=== PATIENT | male | born 1960 | race Caucasian/White ===

== ENCOUNTER 2018-01-24 10:00 | Day surgery (SDC) | payer MEDICAID ==
[2018-01-23 15:16] LABS: BASOPHILS # (AUTO) 0.1 X10'3 (0-0.2); BASOPHILS % (AUTO) 1.6 % (0-1); EOSINOPHILS # (AUTO) 0.3 X10'3 (0-0.9); EOSINOPHILS % (AUTO) 4.1 % (0-6); LYMPHOCYTES # (AUTO) 2.3 X10'3 (1.1-4.8); LYMPHOCYTES % (AUTO) 28.1 % (21-51); MEAN CORPUSCULAR HEMOGLOBIN 32.7 PG (27.0-31.0); MEAN CORPUSCULAR HGB CONC 34.6 % (33.0-36.5); MEAN CORPUSCULAR VOLUME 94.4 FL (78-98); MEAN PLATELET VOLUME 7.8 FL (7.4-10.4); MONOCYTES # (AUTO) 0.8 X10'3 (0-0.9); MONOCYTES % (AUTO) 9.4 % (2-12); NEUTROPHILS # (AUTO) 4.7 X10'3 (1.8-7.7); NEUTROPHILS % (AUTO) 56.8 % (42-75); PRE OP HEMOGLOBIN 15.3 g/dL (14.0-17.9); PRE OP PLATELET COUNT 332 X10'3 (140-440); RED BLOOD COUNT 4.66 X10'6 (4.70-6.10); RED CELL DISTRIBUTION WIDTH 13.4 % (11.5-14.5)
[2018-01-23 15:33] LABS: ALBUMIN 3.6 G/DL (3.4-5.0); ALBUMIN/GLOBULIN RATIO 0.8 (1.1-1.5); ALKALINE PHOSPHATASE 127 IU/L (46-116); BLOOD UREA NITROGEN 13 MG/DL (7-18); BUN/CREATININE RATIO 13.1 (5.4-32.0); CHLORIDE 103 MMOL/L (99-107); CREATININE 0.99 MG/DL (0.60-1.10); PRE OP ANION GAP 9 (8-16); PRE OP AST 67 U/L (10-37); PRE OP BILIRUB, TOTAL 0.3 MG/DL (0.0-1.0); PRE OP GLUCOSE 114 MG/DL (70-104); PRE OP POTASSIUM 4.1 MMOL/L (3.4-5.1); PRE OP SODIUM 140 MMOL/L (135-145); TOTAL CARBON DIOXIDE 28.3 MMOL/L (24-32); TOTAL PROTEIN 8.1 G/DL (6.4-8.2); eGFR 78 ML/MIN
[2018-01-23 15:41] LABS: PRE OP ALT 86 U/L (30-65)
[~2018-01-24] VITALS: Ht 162.6 cm; Wt 79.4 kg
[2018-01-24] VITALS (7 sets, daily range): BP systolic 110–130; BP diastolic 74–83
[~2018-01-24 10:00] MED LIST: AMLO10TA4 PO; BUPIVAcaine/PF 2.5 mg/ml (0.25%) 30ml vial ONE; HYDR25TA4 PO; LOSA25TA96 PO; MELO-102 PO; cefazolin/dext.iso 2gm/50ml 50 ML IV ONE; famotidine 20mg tablet PO ONE; ringers solution, lacted 1,000 ML IV SCH
[2018-01-24] MEDS ORDERED: LIDOcaine 1% (10mg/ml) 2ml vial ONE (11:18)
[2018-01-24] MEDS ORDERED: ringers solution, lacted 1,000 ML IV SCH (12:26)
[2018-01-24] MEDS ORDERED: proCHLORperazine 10 MG/2 ml inj IV PRN (12:30)
[2018-01-24] MEDS ORDERED: ondansetron/PF 4mg/2ml inj IV PRN (12:30)
[2018-01-24] MEDS ORDERED: morphine 2 MG/ML inj. syringe IV PRN ×2 (12:30)
[2018-01-24] MEDS ORDERED: meperidine/PF 50mg/ml syringe IV PRN ×3 (12:30)
[2018-01-24] MEDS ORDERED: LIDOcaine 0.5% (5mg/ml) 50ml vial ONE (12:42)
[2018-01-24] MEDS ORDERED: fentaNYL/PF 50MCG/1 ML 2ML syringe ONE (12:50)
[2018-01-24] MEDS ORDERED: midazolam 2 mg/2 ml injection ONE (12:50)
[2018-01-24] MEDS ORDERED: propofol inj 20 ML IV ONE ×2 (13:10)
[2018-01-24] MEDS ORDERED: HYDROmorphone 1 mg/ml syringe ONE (14:19)
[2018-01-24] MEDS ORDERED: acetaminophen 1,000mg/100ml IV 100 ML IV PRN (14:20)
[2018-01-24] MEDS ORDERED: ketorolac trometh. 30mg/ml inj. IV ONE (14:20)
[2018-01-24] MEDS ORDERED: HYDROmorphone inj. 0.5 MG/0.5 ML DISP.SYRIN IV ONE (14:20)
[2018-01-24] MEDS ORDERED: morphine 4 MG/ML inj SYRINge IV PRN ×2 (14:23→14:24)
== END 2018-01-24 15:00 | disposition home or self-care (01) ==
LOC: PAS 10:00
PROVIDERS: ATTEND Orthopaedic Surgery Hand Surgery
DX: M18.12 Unilateral primary osteoarthritis of first carpometacarpal joint, left hand (principal); M25.742 Osteophyte, left hand; F10.129 Alcohol abuse with intoxication, unspecified; F41.9 Anxiety disorder, unspecified; G89.4 Chronic pain syndrome; I10 Essential (primary) hypertension; E66.9 Obesity, unspecified; F17.210 Nicotine dependence, cigarettes, uncomplicated; J44.9 Chronic obstructive pulmonary disease, unspecified; F32.9 Major depressive disorder, single episode, unspecified; M19.90 Unspecified osteoarthritis, unspecified site; Z98.890 Other specified postprocedural states; Z91.011 Allergy to milk products; Z91.018 Allergy to other foods; Z68.30 Body mass index [BMI] 30.0-30.9, adult; Z79.899 Other long term (current) drug therapy
CPT/HCPCS: 25447; 36415; 80053; 85025; 93005; A6258; A6449; J0690; J1170; J2001; J2250; J2704; J3010; J3490; J7120; L8630; A7000

== ENCOUNTER 2023-08-07 11:05 | Day surgery (SDC) | payer MEDICAID ==
[~2023-08-07] VITALS: Ht 162.6 cm; Wt 89.4 kg
[~2023-08-07 11:05] MED LIST changes: -BUPIVAcaine/PF 2.5 mg/ml (0.25%) 30ml vial ONE; +LOSA-415 PO; -LOSA25TA96 PO; -cefazolin/dext.iso 2gm/50ml 50 ML IV ONE; -famotidine 20mg tablet PO ONE; -ringers solution, lacted 1,000 ML IV SCH
[2023-08-07 11:30] VITALS: BP 150/103; PULSE 103; RESP 20; TEMP 98.1; O2SAT 88
--- NOTE | 2023-08-07 11:30 | NUR ---
O2 Sat at rest on room air:__88_% If below 89%: Recovery O2 Sat at rest on __2_LPM:___%:__92_% via__nasal cannula (mask/nasal cannula, etc..) No further documentation is necessary. If O2 Sat did not drop below 89% on room air,ambulate patient on room air. O2 Sat while ambulating on room air:___% Recovery O2 Sat while ambulating on ___LPM:___% No further documentation is necessary. If patient does not drop below 89% while ambulating, he/she does not qualify for home O2.
[2023-08-07 11:31] VITALS: RESP 18; O2SAT 92
[2023-08-07] MEDS ORDERED: FLUO-1 PO (11:32)
[2023-08-07] MEDS ORDERED: GABA300T25 PO (11:32)
[2023-08-07] MEDS ORDERED: ALBU10.7 INH (11:32)
[2023-08-07] MEDS ORDERED: normal saline 1000ml 1,000 ML IV SCH (11:35)
[2023-08-07] MEDS ORDERED: fentaNYL/PF 50MCG/1 ML 2ML syringe ONE (14:36)
[2023-08-07] MEDS ORDERED: midazolam 1 mg/ML 2ml injection ONE (14:36)
[2023-08-07] MEDS ORDERED: heparin sodium, porcine/PF 100unit/ml 5ML syringe ONE (14:36)
[2023-08-07 15:30] VITALS: BP 134/82; PULSE 96; RESP 18; O2SAT 92
[2023-08-07 15:45] VITALS: BP 141/72; PULSE 90; RESP 19; O2SAT 92
[2023-08-07 16:00] VITALS: BP 135/83; PULSE 79; RESP 19; O2SAT 91
[2023-08-07 16:15] VITALS: BP 136/78; PULSE 74; RESP 18; O2SAT 92
== END 2023-08-07 16:30 | disposition home or self-care (01) ==
LOC: SSTAY O 11:05
PROVIDERS: ATTEND Radiology Vascular & Interventional Radiology
DX: C34.12 Malignant neoplasm of upper lobe, left bronchus or lung (principal); F17.210 Nicotine dependence, cigarettes, uncomplicated; Z91.011 Allergy to milk products; Z91.048 Other nonmedicinal substance allergy status; Z79.899 Other long term (current) drug therapy; Z72.89 Other problems related to lifestyle; F12.90 Cannabis use, unspecified, uncomplicated; F14.90 Cocaine use, unspecified, uncomplicated; F15.90 Other stimulant use, unspecified, uncomplicated
CPT/HCPCS: 36561; 76937; 77001; 99152; C1769; C1788; J1642; J2250; J3010; J7030; 99153; A4615; A4620; C1894

== ENCOUNTER 2023-08-13 08:50 | Emergency (ER) | payer MEDICAID ==
[~2023-08-13] VITALS: Ht 160 cm; Wt 86.4 kg
[~2023-08-13 08:50] MED LIST changes: +ALBU10.7 INH; -AMLO10TA4 PO; +FLUO-1 PO; +GABA300T25 PO; -MELO-102 PO
[2023-08-13 09:01] VITALS: TEMP 98
[2023-08-13 09:36] LABS: BASOPHILS # (AUTO) 0.1 X10'3 (0-0.2); BASOPHILS % (AUTO) 0.8 % (0-1); EOSINOPHILS % (AUTO) 0 % (0-6); HEMATOCRIT 41.7 % (42.0-52.0); HEMOGLOBIN 13.9 g/dl (14.0-17.9); LYMPHOCYTES # (AUTO) 0.8 X10'3 (1.1-4.8); LYMPHOCYTES % (AUTO) 4.6 % (21-51); MEAN CORPUSCULAR HEMOGLOBIN 31.5 PG (27.0-31.0); MEAN CORPUSCULAR HGB CONC 33.4 g/dL (33.0-36.5); MEAN CORPUSCULAR VOLUME 94.2 FL (78-98); MEAN PLATELET VOLUME 8.2 FL (7.4-10.4); MONOCYTES # (AUTO) 0.6 X10'3 (0-0.9); MONOCYTES % (AUTO) 3.5 % (2-12); NEUTROPHILS % (AUTO) 91.1 % (42-75); PLATELET COUNT 347 X10'3 (140-440); RED BLOOD COUNT 4.42 X10'6 (4.70-6.10); RED CELL DISTRIBUTION WIDTH 13.1 % (11.5-14.5); WHITE BLOOD COUNT 17.5 X10'3 (4.5-11.0)
[2023-08-13 09:45] LABS: ALANINE AMINOTRANSFERASE 40 U/L (12-78); ALBUMIN 2.7 G/DL (3.4-5.0); ALBUMIN/GLOBULIN RATIO 0.4 (1.1-1.5); ALKALINE PHOSPHATASE 170 IU/L (46-116); ANION GAP 11 (8-16); ASPARTATE AMINO TRANSFERASE 31 U/L (10-37); BILIRUBIN,TOTAL 0.3 MG/DL (0.1-1.0); BLOOD UREA NITROGEN 15 MG/DL (7-18); CALCIUM 9.6 MG/DL (8.5-10.1); CHLORIDE 98 MMOL/L (99-107); CREATININE 0.94 MG/DL (0.60-1.10); GLUCOSE 363 MG/DL (70-104); POTASSIUM 3.9 MMOL/L (3.5-5.1); SODIUM 134 MMOL/L (135-145); TOTAL CARBON DIOXIDE 24.9 MMOL/L (24-32); TOTAL PROTEIN 8.9 G/DL (6.4-8.2); eCRCL 66 ML/MIN; eGFR 82 ML/MIN
[2023-08-13 09:49] LABS: ETHANOL < 10 MG/DL (<10); PRO BRAIN NATRIURETIC PEPTIDE 814 PG/ML (0-125)
[2023-08-13 10:33] VITALS: BP 177/107; PULSE 93; RESP 18; O2SAT 99
== END 2023-08-13 11:04 | disposition left against medical advice (07) ==
LOC: ER 08:51
DX: R07.89 Other chest pain (principal); R00.2 Palpitations; E11.9 Type 2 diabetes mellitus without complications
CPT/HCPCS: 36415; 71045; 80053; 80320; 82948; 83880; 84484; 85025; 93005; 99281; 99285